=== PATIENT | male | born 1995 | race Caucasian/White ===

== ENCOUNTER 2016-06-25 20:13 | Emergency (ER) | payer SELFPAY ==
[2016-06-25] MEDS ORDERED: Acetaminophen TAB* 325 MG PO ONE (20:19)
[2016-06-25] MEDS ORDERED: NS 0.9% 1000 ML* 1,000 ML IV ONE (21:37)
--- NOTE | 2016-06-25 21:47 | ED ---
Influenza-Like Illness - HPI Summary HPI Summary: Pt came to ED with a CC of fever, mid back pain, and body aches, dizziness and GUIDRY since early this morning. Patient was able to go to work this afternoon, but states pain and chills and sweats have been increasing in severity. Denies other health problems. Denies known sick contacts or travel. Denies N/V/C/D. - History of Current Complaint Chief Complaint: EDFever Time Seen by Provider: 06/25/16 21:33 Hx Obtained From: Patient Onset/Duration: Sudden Onset Severity: Moderate Associated Signs & Symptoms: Fever, T Max - 103, F/C, Myalgia, Headache Related Hx: Possible Flu/Infectious Exposure - Risk Factors Influenza Risk Factors: Negative - Allergy/Home Medications Allergies/Adverse Reactions: Allergies Allergy/AdvReac Type Severity Reaction Status Date / Time Amoxicillin Allergy Unknown Hives Verified 06/25/16 20:15 PMH/Surg Hx/FS Hx/Imm Hx Previously Healthy: Yes Respiratory History: Reports: Hx Asthma - Immunization History Hx Pertussis Vaccination: No Immunizations Up to Date: No Infectious Disease History: No Infectious Disease History: Denies: Traveled Outside the [place] in Last 30 Days - Family History Known Family History: Positive: None - Social History Occupation: Employed Full-time Lives: With Family Alcohol Use: None Hx Substance Use: No Substance Use Type: Reports: None Hx Tobacco Use: No Smoking Status (MU): Never Smoked Tobacco Do You Chew or Dip Tobacco: No Have You Chewed or Dipped Tobacco in the LAST YEAR: No Review of Systems Positive: Fever, Chills, Fatigue, Skin Diaphoresis Eyes: Negative ENT: Negative Cardiovascular: Negative Respiratory: Negative Gastrointestinal: Negative Positive: see HPI Musculoskeletal: Negative Skin: Negative Neurological: Negative Psychological: Normal All Other Systems Reviewed And Are Negative: Yes Physical Exam Triage Information Reviewed: Yes Vital Signs On Initial Exam: Initial Vitals Temp Pulse Resp BP Pulse Ox 103.6 F 111 18 151/58 98 06/25/16 20:15 06/25/16 20:15 06/25/16 20:15 06/25/16 20:15 06/25/16 20:15 Vital Signs Reviewed: Yes Appearance: Positive: No Pain Distress, Well-Nourished, Ill-Appearing Skin: Positive: Warm, Diaphoretic Eyes: Positive: Normal, EOMI ENT: Positive: TMs normal Neck: Positive: Supple, Nontender Respiratory/Lung Sounds: Positive: Clear to Auscultation, Breath Sounds Present Cardiovascular: Positive: Normal, RRR, Pulses are Symmetrical in both Upper and Lower Extremities Abdomen Description: Positive: Nontender Bowel Sounds: Positive: Present Musculoskeletal: Positive: Normal, Strength/ROM Intact Neurological: Positive: Normal, Sensory/Motor Intact, Speech Normal Psychiatric: Positive: Normal AVPU Assessment: Alert - Muna Coma Scale Best Eye Response: 4 - Spontaneous Best Motor Response: 6 - Obeys Commands Best Verbal Response: 5 - Oriented Coma Scale Total: 15 Diagnostics - Vital Signs Vital Signs Temp Pulse Resp BP Pulse Ox 06/25/16 20:15 103.6 F 111 18 151/58 98 - Laboratory Result Diagrams: 06/25/16 21:45 06/25/16 21:45 Lab Statement: Any lab studies that have been ordered have been reviewed, and results considered in the medical decision making process. Flu Symptom Course/Dx - Course Course Of Treatment: Flu swab. Fluids, tylenol given. Patient feeling better. - Diagnoses Differential Diagnosis/HQI/PQRI: Positive: Influenza, Pneumonia, Upper Respiratory Infection Provider Diagnoses: Viral illness Discharge - Discharge Plan Condition: Stable Disposition: HOME Patient Education Materials: Viral Syndrome (ED) Forms: *Work Release Referrals: No Primary Care Phys,NOPCP [Primary Care Provider] - Additional Instructions: Drink plenty of fluids. A humidifier in the home can help with congestion during the colder months. Take any medication prescribed to you as directed. If you have any questions regarding your medications, you may call the office or your pharmacist. If your symptoms fail to improve or worsen, please call your primary care provider, come back to urgent care or the emergency room. Tylenol 650mg three times daily as needed for pain and fever.
[2016-06-25 22:03] LABS: Hematocrit 45 % (42-52); Hemoglobin 15.5 g/dl (14.0-18.0); Mean Corpuscular HGB Conc 35 g/dl (31-36); Mean Corpuscular Hemoglobin 30 pg (27-31); Mean Corpuscular Volume 86 fL (80-94); Mean Platelet Volume 11 um3 (7.4-10.4); Red Blood Count 5.24 10^6/ul (4.0-5.4); Red Cell Distribution Width 13 % (10.5-15); White Blood Count 8.1 10^3/ul (3.5-10.8)
[2016-06-25 22:19] LABS: Albumin 4.8 g/dL (3.2-5.2); BUN/Creatinine Ratio 12.5 (8-20); C Reactive Protein 34.85 mg/L (< 5.00); Calcium 9.8 mg/dL (8.6-10.3); EGFR African American 65.4 (>60); EGFR Non-African American 50.9 (>60); Globulin 3.3 g/dL (2-4); Total Bilirubin 0.6 mg/dL (0.2-1.0); Total Protein 8.1 g/dL (6.4-8.9)
[2016-06-25 22:24] LABS: Potassium 3.5 mmol/L (3.5-5.0)
[2016-06-26 00:03] VITALS: BP 135/67
== END 2016-06-26 00:02 | disposition home or self-care (01) ==
LOC: ED 20:13
DX: M54.9 Dorsalgia, unspecified (principal); R53.83 Other fatigue; R61 Generalized hyperhidrosis; B34.9 Viral infection, unspecified
CPT/HCPCS: 36415; 80053; 85025; 86140; 87502; 99283; A9270-GY

== ENCOUNTER 2017-02-08 17:43 | Emergency (ER) | payer BC ==
[2017-02-08 18:04] VITALS: BP 115/66
--- NOTE | 2017-02-13 11:27 | UC ---
Abdominal Pain Male HPI - HPI Summary HPI Summary: 21 year old male presents with RLQ pain after doing abdominal exercises. - History of Current Complaint Chief Complaint: UCAbdominalPain Stated Complaint: LOWED ABD PAIN Time Seen by Provider: 02/08/17 18:06 Severity Initially: Severe Severity Currently: Severe Pain Intensity: 5 Pain Scale Used: 0-10 Numeric - 8 - Allergies/Home Medications Allergies/Adverse Reactions: Allergies Allergy/AdvReac Type Severity Reaction Status Date / Time Amoxicillin Allergy Unknown Hives Verified 06/25/16 20:15 PMH/Surg Hx/FS Hx/Imm Hx Previously Healthy: Yes - Surgical History Surgical History: None - Family History Known Family History: Positive: None - Social History Alcohol Use: None Substance Use Type: None Smoking Status (MU): Never Smoked Tobacco - Immunization History Most Recent Influenza Vaccination: no Review of Systems Constitutional: Negative Skin: Negative Eyes: Negative ENT: Negative Respiratory: Negative Cardiovascular: Negative Gastrointestinal: Abdominal Pain - rlq pain Genitourinary: Negative Motor: Negative Neurovascular: Negative Musculoskeletal: Negative Neurological: Negative Psychological: Negative All Other Systems Reviewed And Are Negative: Yes Physical Exam Triage Information Reviewed: Yes Vital Signs: Initial Vital Signs Temp 36.7 C 02/08/17 18:00 Pulse 77 02/08/17 18:00 Resp 16 02/08/17 18:00 BP 115/66 02/08/17 18:00 Pulse Ox 100 02/08/17 18:00 Vital Signs Reviewed: Yes Eye Exam: Normal ENT Exam: Normal Dental Exam: Normal Neck exam: Normal Neck: Positive: 1 Respiratory Exam: Normal Cardiovascular Exam: Normal Abdomen Description: Positive: Other: - rlq pain Musculoskeletal Exam: Normal Neurological Exam: Normal Psychological Exam: Normal Skin Exam: Normal Abd Pain Male Course/Dx - Differential Dx/Clinical Impression Provider Diagnoses: rlq pain. abdominal strain vs tear Discharge - Discharge Plan Condition: Good Disposition: OTHER Discharge Disposition Comment: patient suggested to go to er Patient Education Materials: Abdominal Pain (ED) Referrals: No Primary Care Phys,NOPCP [Primary Care Provider] - Additional Instructions: please go to er for rlq pain and possible abdominal muscle tear.
== END 2017-02-08 18:45 ==
LOC: UCEAST 17:43
DX: R10.31 Right lower quadrant pain (principal); Z88.1 Allergy status to other antibiotic agents
CPT/HCPCS: 81003; 99211; G0463

== ENCOUNTER 2018-08-05 11:10 | Emergency (ER) | payer SELFPAY ==
[2018-08-05 11:37] VITALS: BP 111/61
--- NOTE | 2018-08-05 14:16 | UC ---
Palpitation/Dysrhythmia HP - HPI Summary HPI Summary: This is a healthy 23-year-old male walks into the urgent care center complaining of "his heart beating out of his chest." The patient states that he had this condition approximately one year ago but it resolved a couple of hours. Present episode of palpitations began approximately 15 hours ago. He has not fainted and does not feel short of breath but he did feel uncomfortable driving here. - History of Current Complaint Chief Complaint: UCCardiac Stated Complaint: HEART BEATING FAST Time Seen by Provider: 08/05/18 11:34 Pain Intensity: 0 Pain Scale Used: 0-10 Numeric - Allergy/Home Medications Allergies/Adverse Reactions: Allergies Allergy/AdvReac Type Severity Reaction Status Date / Time Penicillins Allergy Hives Verified 08/05/18 11:38 PMH/Surg Hx/FS Hx/Imm Hx - Additional Past Medical History Additional PMH: PMH: approximately one year ago, similar episode of palpitations that resolved in 2-3 hours. Family hx: father with CVD. 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 Previously Healthy: Yes - Surgical History Surgical History: None - Family History Known Family History: Positive: None - Social History Alcohol Use: Weekly Substance Use Type: None Smoking Status (MU): Never Smoked Tobacco - Immunization History Most Recent Influenza Vaccination: no Review of Systems All Other Systems Reviewed And Are Negative: Yes Constitutional: Positive: Negative Eyes: Positive: Negative ENT: Positive: Negative Respiratory: Positive: Negative. Negative: Shortness Of Breath Cardiovascular: Positive: Palpitations Gastrointestinal: Positive: Negative Genitourinary: Positive: Negative Is Patient Immunocompromised?: No Physical Exam Triage Information Reviewed: Yes Vital Signs: Initial Vital Signs Temp 100.0 F 08/05/18 11:25 Pulse 155 08/05/18 11:25 Resp 18 08/05/18 11:25 BP 111/61 08/05/18 11:25 Pulse Ox 100 08/05/18 11:25 Vital Signs Reviewed: Yes Eye Exam: Normal ENT Exam: Normal Dental Exam: Normal Neck exam: Normal Neck: Positive: 1 Respiratory Exam: Normal Respiratory: Positive: Chest non-tender, Lungs clear Cardiovascular: Positive: RRR, Pulses Normal, Tachycardia. Negative: Distal Pulses Weak, Delayed Capillary Refill Abdominal Exam: Normal Abdomen Description: Positive: Nontender, No Organomegaly Musculoskeletal Exam: Normal Neurological Exam: Normal Psychological Exam: Normal Skin Exam: Normal Skin: Negative: Rashes Palpitations Course/Dx - Course Course Of Treatment: This is a healthy 23-year-old male walks into the urgent care center complaining of "his heart beating out of his chest." The patient states that he had this condition approximately one year ago but it resolved a couple of hours. Present episode of palpitations began approximately 15 hours ago. He has not fainted and does not feel short of breath but he did feel uncomfortable driving here. Physical examination shows a healthy male, who is physically active, in no apparent distress. He is conversant and does not complain of chest pain. EKG shows a rate of approximately 150, narrow complex. Procedure: Patient was asked to perform vagal maneuvers and after listening in the area of the right neck, external carotid massage was attempted. Neither of these maneuvers decrease the patient's pulse rate. The remainder of his physical examination was unremarkable. His past medical history and family history was also noncontributory to his present condition, with the exception that his family history is significant for his father having a heart attack in his 50s. An ambulance was called and the patient was transferred to [facility] for further evaluation and treatment. I diagnosis is PSVT. - Differential Dx/Diagnosis Differential Diagnosis/HQI/PQRI: Paroxymal SVT, Pulmonary Embolism Provider Diagnosis: PSVT (paroxysmal supraventricular tachycardia) Discharge - Sign-Out/Discharge Documenting (check all that apply): Patient Departure All imaging exams completed and their final reports reviewed: No Studies - Discharge Plan Condition: Stable Disposition: TRANS HIGHER LV OF CARE FAC Patient Education Materials: Supraventricular Tachycardia (ED) Referrals: No Primary Care Phys,NOPCP [Primary Care Provider] - Additional Instructions: TO ED BY AMBULANCE; VITAL SIGNS STABLE. LINE PLACED. - Billing Disposition and Condition Condition: STABLE Disposition: Trans Higher Lvl of Care Fac
== END 2018-08-05 11:47 | disposition short-term general hospital (02) ==
LOC: UCEAST 11:10
DX: I47.1 Supraventricular tachycardia (principal); Z82.49 Family history of ischemic heart disease and other diseases of the circulatory system; Z88.0 Allergy status to penicillin
CPT/HCPCS: 93005; 96360; 99203; G0463

== ENCOUNTER → 2018-08-05 12:08 | Emergency (ER) | payer SELFPAY ==
[~2018-08-05 12:08] MED LIST: Diltiazem IV VIAL* 125 MG in NS 0.9% 100 ML* 100 ML IVPB ONE; Diltiazem IV* 5 MG/ML 5 ML VIAL (for loading dose/IV Push) (25 MG) IV SLOW PU ONE; Flumazenil* 0.1 MG/ML 5 ML MDV ONE; Metoprolol Tartrate IV* 1 MG/ML 5 ML VIAL IV ONE; Metoprolol Tartrate IV* 1 MG/ML 5 ML VIAL ONE; Midazolam* 1 MG/ML 5 ML VIAL (5 MG) ONE; NS 0.9% 1000 ML** 1,000 ML IV ONE; Naloxone* 0.4 MG/ML 1 ML VIAL ONE; fentaNYL* 50 MCG/ML 2 ML VIAL (100 MCG VIAL) ONE; proPAFENone TAB* 150 MG PO ONE
--- NOTE | 2018-08-05 12:34 | ED ---
Palpitations / Dysrhythmia - HPI Summary HPI Summary: 23 year old M brought in by [facility] ambulance from [facility] to [facility] complains of rapid heart rate since last night after exercising. The patient rates the pain 0/10 in severity. Symptoms aggravated by nothing. Symptoms alleviated by nothing. Patient reports shortness of breath and dizziness. Patient denies fever, chills, erythema of eyes, sore throat, chest pain, cough, abdominal pain, nausea, vomiting, dysuria, hematuria, myalgia, edema, and rash. Patient arrives to ED from [facility] in SVT and heart rate in the 140- 160s per nurse's note. EMS did not give medications per nurse's note. Patient states that he took a pre work out yesterday afternoon at 13:00. He states that he takes pre work out every day after which he usually feels energetic. He worked out, came home, then noticed his heart was beating really fast. Patient reports FHx HI. - History of Current Complaint Chief Complaint: EDDysrhythmPalp Time Seen by Provider: 08/05/18 12:14 Hx Obtained From: Patient Onset/Duration: Lasting Days - last night, Still Present Timing: Constant Severity Currently: None Character: Fast Aggravating: Nothing Alleviating: Nothing - Allergy/Home Medications Allergies/Adverse Reactions: Allergies Allergy/AdvReac Type Severity Reaction Status Date / Time Penicillins Allergy Hives Verified 08/05/18 11:38 Home Medications: Home Medications Ibuprofen 400 mg PO DAILY PRN 08/05/18 [History Confirmed 08/05/18] PMH/Surg Hx/FS Hx/Imm Hx Previously Healthy: No Endocrine/Hematology History: Denies: Hx Diabetes, Hx Thyroid Disease Cardiovascular History: Denies: Hx Hypertension Respiratory History: Reports: Hx Asthma Denies: Hx Chronic Obstructive Pulmonary Disease (COPD) GI History: Denies: Hx Ulcer - Surgical History Surgery Procedure, Year, and Place: None reported Infectious Disease History: No Infectious Disease History: Denies: Hx Clostridium Difficile, Hx Hepatitis, Hx Human Immunodeficiency Virus (HIV), Hx of Known/Suspected MRSA, Hx Shingles, Hx Tuberculosis, Hx Known/ Suspected VRE, Hx Known/Suspected VRSA, History Other Infectious Disease, Traveled Outside the [place] in Last 30 Days - Family History Known Family History: Positive: Cardiac Disease - Father has had multiple MIs and stents - Social History Alcohol Use: Occasionally Hx Substance Use: No Substance Use Type: Reports: None Hx Tobacco Use: No Smoking Status (MU): Never Smoked Tobacco Review of Systems Negative: Fever, Chills Negative: Erythema Negative: Sore Throat Negative: Chest Pain Positive: Shortness Of Breath. Negative: Cough Positive: Other - Rapid heart rate. Negative: Abdominal Pain, Vomiting, Nausea Negative: dysuria, hematuria Negative: Myalgia, Edema Negative: Rash Neurological: Other - Dizziness All Other Systems Reviewed And Are Negative: Yes Physical Exam - Summary Physical Exam Summary: Constitutional: Well-developed, Well-nourished, Alert. (-) Distressed Skin: Warm, Dry HENT: Normocephalic; Atraumatic Eyes: Conjunctiva normal Neck: Musculoskeletal ROM normal neck. (-) JVD, (-) Stridor, (-) Tracheal deviation Cardio: Rhythm regular, rate rapid, Heart sounds normal; Intact distal pulses; The pedal pulses are 2+ and symmetric. Radial pulses are 2+ and symmetric. (-) Murmur Pulmonary/Chest wall: Effort normal. (-) Respiratory distress, (-) Wheezes, (-) Rales Abd: Soft, (-) tenderness, (-) Distension, (-) Guarding, (-) Rebound Musculoskeletal: (-) Edema Lymph: (-) Cervical adenopathy Neuro: Alert, Oriented x3 Psych: Mood and affect Normal Triage Information Reviewed: Yes Vital Signs On Initial Exam: Initial Vitals Temp Pulse Resp BP Pulse Ox 99.6 F 151 14 152/126 99 08/05/18 12:12 08/05/18 12:12 08/05/18 12:12 08/05/18 12:12 08/05/18 12:12 Vital Signs Reviewed: Yes Diagnostics - Vital Signs Vital Signs Temp Pulse Resp BP Pulse Ox 08/05/18 12:12 99.6 F 151 14 152/126 99 - Laboratory Result Diagrams: 08/05/18 12:30 08/05/18 12:30 Lab Statement: Any lab studies that have been ordered have been reviewed, and results considered in the medical decision making process. - EKG 1213 Summary of EKG Findings: Non STEMI 1308 Cardiac Rate: NL - 90 BPM EKG Rhythm: Atrial Fibrillation Summary of EKG Findings: Non STEMI Re-Evaluation - Re-Evaluation First Eval Re-Evaluation Time: 12:45 Change: Unchanged Comment: I was present in the room when adenosine was administered. The medication did not abort the tachycardia. The patient appeared to have underlying flutter waves. Second Eval Re-Evaluation Time: 13:34 Comment: I explained plan to him and he is agreeable Course/Dx - Course Course Of Treatment: 23 year old M brought in by [facility] ambulance from [facility] to [facility] complains of rapid heart rate since last night after exercising. Patient arrives to ED from [facility] in SVT and heart rate in the 140-160s per nurse's note. In ED course, patient was given adenosine. Dr. Mo, cardiology, will come see the patient. Dr. Mo recommended attempted cardioversion with Cardizem and also Lopressor, these fail. Patient did receive direct-current cardioversion by Dr. Mo. See his procedure note. The cardioversion was successful. Dr. Mo will follow-up with him as an outpatient. I suspect that the renal insufficiency is related to dehydration. Outpatient follow-up. - Diagnoses Provider Diagnoses: Atrial flutter with rapid ventricular response, Renal insufficiency - Physician Notifications Discussed Care Of Patient With: Jonathon Mo Time Discussed With Above Provider: 13:24 Instructed by Provider To: Other - Dr. Mo, cardiology, recommended administering 300 mg of propafenone. He also recommended bedside echocardiogram. He will come see the patient. We discussed the possibility of cardioversion. - Critical Care Time Critical Care Time: 30-74 min - 45 min Discharge - Sign-Out/Discharge Documenting (check all that apply): Patient Departure Patient Received Moderate/Deep Sedation with Procedure: No - Discharge Plan Condition: Good Disposition: HOME Referrals: Jonathon Mo MD [Medical Doctor] - 1 Week [facility] [Outside] - 2 Days (This will save up with a primary care physician. They can usually receives same day or next day.) Additional Instructions: Eat one to 2 avocados daily for potassium replacement. Avoid taking any exercise supplements, they may have contributed to today's heart rhythm issue. - Billing Disposition and Condition Condition: GOOD Disposition: Home - Attestation Statements Document Initiated by Scribe: Yes Documenting Scribe: Anyi Gutiérrez Provider For Whom Scribe is Documenting (Include Credential): Heber West MD Scribe Attestation: I, Anyi Gutiérrez, scribed for Heber West MD on 08/05/18 at 1755. Scribe Documentation Reviewed: Yes Provider Attestation: The documentation as recorded by the scribe, Anyi Gutiérrez accurately reflects the service I personally performed and the decisions made by me, Heber Wset MD Status of Scribe Document: Viewed
[2018-08-05 12:38] LABS: ABS Basophils 0.1 10^3/ul (0-0.2); ABS Eosinophils 0 10^3/ul (0-0.6); ABS Lymphocytes 1.6 10^3/ul (1.0-4.8); ABS Monocytes 0.4 10^3/ul (0-0.8); ABS Nucleated RBC 0 10^3/ul; Eosinophil % 0.6 %; Hematocrit 45 % (36-46); Hemoglobin 15.4 g/dL (14.0-18.0); Lymphocyte % 22.3 %; Mean Corpuscular HGB Conc 35 g/dL (31-36); Mean Corpuscular Hemoglobin 29 pg (27-31); Mean Corpuscular Volume 85 fL (80-94); Mean Platelet Volume 9.4 fL (7.4-10.4); Nucleated Red Blood Cells % 0; Platelet Count 282 10^3/uL (150-450); Red Blood Count 5.24 10^6 /uL (4.18-5.48); Red Cell Distribution Width 14 % (10.5-15); White Blood Count 7.2 10^3/uL (3.5-10.8)
[2018-08-05] MEDS: Adenosine* 3 MG/ML VIAL IV PUSH ONE ×2 (12:40→12:43)
[2018-08-05 12:55] LABS: Albumin 4.4 g/dL (3.2-5.2); Albumin/Globulin Ratio 1.5 (1-3); BUN/Creatinine Ratio 16.3 (8-20); Calcium 9.3 mg/dL (8.6-10.3); EGFR African American 82.1 (>60); EGFR Non-African American 67.9 (>60); Globulin 2.9 g/dL (2-4); Potassium 3.8 mmol/L (3.5-5.0); Total Bilirubin 0.7 mg/dL (0.2-1.0); Total Protein 7.3 g/dL (6.4-8.9)
[2018-08-05 12:57] LABS: Troponin I 0.02 ng/mL (<0.04)
[2018-08-05 13:35] LABS: TSH (Thyroid Stimulating Horm) 1.77 mcIU/mL (0.34-5.60)
[2018-08-05 13:37] LABS: Free T4 1.14 ng/dL (0.61-1.12)
[2018-08-05 15:23] LABS: Barbiturates Urine Screen None Detected (None Detect); Benzodiazepine Urine Screen None Detected (None Detect); Urine Cannabinoids Screen None Detected (None Detect)
--- NOTE | 2018-08-05 15:35 | ECHO ---
Patient: OZ FINNEY [facility] Rec#: [id number] : 1995 Date: 08/05/2018 Age: 23y Height: 180 cm / 70.9 in Weight: 87 kg / 191.7 lbs Sex: M BSA: 2.07 Room#: [facility] Admit Date#: 08/05/2018 Type: Inpatient Referring: ED Reading: Jonathon Mo MD Inspector Exhaust Emissions: [place] [facility] Transthoracic Echocardiogram Indication: Atrial Flutter BP: 124/72 HR: 125 Rhythm: A-Flutter Findings History: SVT, asthma. Technical Comments: The study quality is good. Completed at 1500. Left Ventricle: The left ventricular chamber size is normal. There is no left ventricular hypertrophy. Global left ventricular wall motion and contractility are within normal limits. There is normal left ventricular systolic function. The estimated ejection fraction is 55-60%. The assessment of diastolic function is non-diagnostic. Left Atrium: The left atrial chamber size is normal. Right Ventricle: Moderator Band present. The right ventricle is mildly dilated. The right ventricular global systolic function is normal. Right Atrium: The right atrial cavity size is normal. Aortic Valve: The aortic valve is trileaflet. There is no evidence of aortic valve thickening. There is a trace of aortic regurgitation. There is no evidence of aortic stenosis. Mitral Valve: The mitral valve leaflets are mildly thickened. There is mild mitral valve prolapse. There is a trace of mitral regurgitation. There is no evidence of mitral stenosis. Tricuspid Valve: The tricuspid valve leaflets are normal. There is a physiologic tricuspid regurgitation. Unable to estimate the right ventricular systolic pressure. There is no tricuspid stenosis. Pulmonic Valve: The pulmonic valve appears normal. There is a trace pulmonic regurgitation. There is no pulmonic stenosis. Pericardium: There is no significant pericardial effusion. Aorta: There is no dilatation of the ascending aorta. There is no dilatation of the aortic arch. The aortic root is normal in size. Pulmonary Artery: The main pulmonary artery appears normal. Venous: The inferior vena cava appears normal in size. There is a greater than 50% respiratory change in the inferior vena cava dimension. Summary: There was not any prior study for comparison. Conclusions The estimated ejection fraction is 55-60%. The right ventricle is mildly dilated. There is a trace of aortic regurgitation. There is mild mitral valve prolapse. There is a trace of mitral regurgitation. There is a physiologic tricuspid regurgitation. Measurements Name Value Normal Range RVIDd (AP) 2D 2 cm (0.9 - 2.6) RVDdMajor (2D) 4.6 cm (2.2 - 4.4) RAd ISD 4CH 4.6 cm (3.4 - 4.9) RA (A4C)W 3.9 cm (2.9 - 4.6) IVSd (2D) 0.8 cm (0.6 - 1) LVPWd (2D) 1 cm (0.6 - 1) LVIDd (2D) 5.1 cm (3.6 - 5.4) LVIDs (2D) 3.2 cm - LV FS (2D) 36 % (25 - 45) Aortic Annulus 2.3 cm (1.4 - 2.6) Ao root diameter (2D) 2.9 cm (2.1 - 3.5) Ascending Ao 2.9 cm (2.1 - 3.4) Aortic arch 1.8 cm (1.8 - 3.4) LA dimension (AP) 2D 3 cm (2.3 - 3.8) LAd ISD 4CH 4.1 cm (2.9 - 5.3) LA ISD 4CH W 4.3 cm (2.5 - 4.5) Name Value Normal Range LA ESV BP (A/L) index 31 ml/m2 - Name Value Normal Range MV E-wave Vmax 0.6 m/sec - MV deceleration time 168 msec - LV septal e' Vmax 0.16 m/sec - LV lateral e' Vmax 0.19 m/sec - LV E:e' septal ratio 3.8 ratio - LV E:e' lateral ratio 3.2 ratio - Name Value Normal Range AV Vmax 1.1 m/sec - AV VTI 19 cm - AV peak gradient 5 mmHg - AV mean gradient 3 mmHg - LVOT Vmax 1 m/sec - LVOT VTI 16 cm - LVOT peak gradient 4 mmHg - LVOT mean gradient 2 mmHg - AYO Vmax 1.1 m/sec - Name Value Normal Range IVC diameter 1.9 cm - Name Value Normal Range PV Vmax 1.3 m/sec - PV peak gradient 7 mmHg -
[2018-08-05 17:39] LABS: Magnesium 2.2 mg/dL (1.9-2.7)
[2018-08-05 18:20] VITALS: BP 109/58
--- NOTE | 2018-08-05 18:47 | CONS ---
CARDIOLOGY CONSULTATION NOTE: DATE OF CONSULT: 08/05/18 - EMERGENCY DEPT. Dr. Jenna hernandez MD. REASON FOR CONSULT: AFib. 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 He said he worked up pretty vigorously and regularly. He said yesterday he worked up from 12 to 2, right after he took a cup of a bodybuilding supplement that had the equivalent of a cup of caffeine according to the patient. About 8 p.m., he was sitting and noticed his heart was fast and irregular. He thought it might go away, so he rested overnight. Next day, he went to work and noticed that while he was doing CPR, he was a little lightheaded. 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 He said that he has been aware of his heart beating since 8 p.m. last night. He said this happened once about a year ago and resolved after about 8 hours. He said he thinks in retrospect he may have had some brief episodes of fluttering since then. He denies any recreational drug use or energy drink use. He does use bodybuilding supplement that contains caffeine. He has alcohol about 2 drinks once every 2 weeks. He denies tobacco use. PAST MEDICAL HISTORY: Includes asthma, the palpitations as described above. He denies hypertension, diabetes, hyperlipidemia. PAST SURGICAL HISTORY: He denies. ALLERGIES: PENICILLIN. FAMILY HISTORY: Includes the father, had stents placed at about age 54, he is now 56, coronary stents. His mother is 65, alive and well. He has 8 siblings, one brother has rhythm problem of unclear etiology and takes medicine for it. SOCIAL HISTORY: He is single, works in [employer]. He has no children. He has alcohol about 2 drinks once every 2 weeks. He denies tobacco use. 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 REVIEW OF SYSTEMS: Review of systems x10 was negative except as above. The patient does fast for 16 hours a day and drinks 30 glasses of water a day. PHYSICAL EXAM: He is a well-developed, well-nourished gentleman, muscular, in no apparent distress. Pulse of 117, blood pressure 139/89. No significant JVD. Carotids 2+, without bruits. No cervical adenopathy or thyromegaly. Extraocular muscles are intact. Sclerae anicteric. Cardiac exam: S1, S2, tachy and irregular. No clear murmurs, gallops, or rubs. Chest was clear. No CVAT. Abdomen: Bowel sounds present. Nontender. Femoral pulses intact without bruits. No hepatosplenomegaly. Distal pulses intact. No edema. Motor strength 5/5 bilaterally. Deep tendon reflexes 2/4. Alert and oriented x3. DIAGNOSTIC STUDIES/LAB DATA: EKG revealed A-flutter, AFib with a rapid ventricular response. Electrolytes are pending at this point. Echo is pending at this point. IMPRESSION: My impression is that Mr. Mae appears to have an episode of atrial fibrillation after bodybuilding, fasting, and using caffeine. I did explain to him the potential for recurrence with electrolyte abnormalities, caffeine use. I also explained the need to exclude structural heart disease. We discussed the risk of stroke which I estimate it would be less than 1% given his young age and lack of history of comorbidities. For the time being, I recommend the followin. We will attempt pharmacologic cardioversion with propafenone 300 mg given recently. 2. I would suggest rate control with IV diltiazem 20 mg and then 5 mg drip. If he fails to convert, we will consider a cardioversion. I discussed the procedure with the patient. 3. Await his electrolytes and try to make sure his potassium and magnesium are within normal limits. 4. Further recommendation will depend on his clinical course. If he continues to have episodes of atrial flutter/fibrillation, he might benefit from being on a beta-lorena care home. 5. we also discussed the possibility of EP consultation for ablation if symptoms are recurrent and adversely affecting his lifestyle. [id number]/[facility] #: [id number] [place]
--- NOTE | 2018-08-05 21:30 | PRO ---
CC: Dr. West * DATE OF PROCEDURE: 08/05/18 - EMERGENCY DEPT INDICATIONS: This is a 23-year-old gentleman who developed palpitations last night, came to the ER, was found to be in atrial flutter. He received IV diltiazem and 300 mg of propafenone and 5 mg of IV Lopressor. He failed to convert. His potassium was 3.8. It was decided to proceed with cardioversion. Informed consent was obtained. The patient was in the fasting state for more than 6 hours. He received 7 mg of Versed and 100 mcg of fentanyl. A single biphasic shock of 120 joules was applied with successful conversion to sinus rhythm. IMPRESSION: Atrial flutter with successful conversion to sinus rhythm. I discussed with the patient before his diagnosis and prognosis and with his permission discussed the results with his brother, Jean. He is to avoid caffeine and electrolyte depletion and dehydration. We will ask him to increase his dietary intake of potassium and consider sending him home on 20 mEq of potassium as discussed with Dr. West. He is to have a magnesium checked which is pending. If he has recurrences, we will have to consider whether to use a standing medication or p.r.n. antiarrhythmic or referral for ablation depending on the frequency and severity of these events. 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 [id number]/[facility] #: [id number] MTDD
== END | disposition home or self-care (01) ==
LOC: ED 12:08
DX: I48.92 Unspecified atrial flutter (principal); N28.9 Disorder of kidney and ureter, unspecified; R94.31 Abnormal electrocardiogram [ECG] [EKG]; J45.909 Unspecified asthma, uncomplicated; Z88.0 Allergy status to penicillin
CPT/HCPCS: 36415; 80053; 80307; 83605; 83735; 84439; 84443; 84484; 85025; 93005; 93306; 96361; 96365; 96366; 96375; 96376; 99285; 99291; A9270-GY; J0153; J2250; J2310; J3010; J3490

== ENCOUNTER 2018-10-01 16:36 | Emergency (ER) | payer BC ==
[2018-10-01] MEDS ORDERED: Metoprolol Tartrate IV* 1 MG/ML 5 ML VIAL IV ONE (16:51)
--- NOTE | 2018-10-01 17:01 | ED ---
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 The pt stated that he was involved in a restraint at work when his chest started feeling weird and was pounding. Pt stated that he had pain but that eventually stopped over time and he denies any breathing issues. Pt states that he was told he had a high heart rate and left work to come to the ED. Stated that he feel better and does not want the same treatment as last time. Pt reported that he did like the IV medication he was given last visit and requested a different one. Symptoms are alleviated and aggravated by nothing. - History of Current Complaint Chief Complaint: EDDysrhythmPalp Time Seen by Provider: 10/01/18 16:46 Hx Obtained From: Patient Onset/Duration: Sudden Onset, Lasting Hours - 1, Still Present Timing: Constant Severity Initially: Moderate Severity Currently: Mild Character: Fast, Pounding Aggravating: Nothing Alleviating: Nothing Associated Signs & Symptoms: Chest Pain - Present when the onset occurred, denies chest pain currently, Shortness of Breath - Negative - Allergy/Home Medications Allergies/Adverse Reactions: Allergies Allergy/AdvReac Type Severity Reaction Status Date / Time Penicillins Allergy Hives Verified 10/01/18 17:29 Home Medications: Home Medications Melatonin 5 mg PO BEDTIME 10/01/18 [History Confirmed 10/01/18] PMH/Surg Hx/FS Hx/Imm Hx Previously Healthy: No Endocrine/Hematology History: Denies: Hx Diabetes, Hx Thyroid Disease Cardiovascular History: Denies: Hx Hypertension Respiratory History: Reports: Hx Asthma Denies: Hx Chronic Obstructive Pulmonary Disease (COPD) GI History: Denies: Hx Ulcer - Surgical History Surgery Procedure, Year, and Place: None reported Infectious Disease History: No Infectious Disease History: Denies: Hx Clostridium Difficile, Hx Hepatitis, Hx Human Immunodeficiency Virus (HIV), Hx of Known/Suspected MRSA, Hx Shingles, Hx Tuberculosis, Hx Known/ Suspected VRE, Hx Known/Suspected VRSA, History Other Infectious Disease, Traveled Outside the [place] in Last 30 Days - Family History Known Family History: Positive: Cardiac Disease - Father has had multiple MIs and stents - Social History Alcohol Use: Occasionally Hx Substance Use: No Substance Use Type: Reports: None Hx Tobacco Use: No Smoking Status (MU): Never Smoked Tobacco Review of Systems Positive: Palpitations - described as pounding, Chest Pain - Present on onset, denies CP currently Negative: Shortness Of Breath All Other Systems Reviewed And Are Negative: Yes Physical Exam - Summary Physical Exam Summary: Appearance: The patient is well-nourished in no acute distress and in no acute pain. Skin: The skin is warm and dry and skin color reflects adequate perfusion. HEENT: The head is normocephalic and atraumatic. The pupils are equal and reactive. The conjunctivae are clear and without drainage. Nares are patent and without drainage. Mouth reveals moist mucous membranes and the throat is without erythema and exudate. The external ears are intact. The ear canals are patent and without drainage. The tympanic membranes are intact. Neck: The neck is supple with full range of motion and non-tender. There are no carotid bruits. There is no neck vein distension. Respiratory: Chest is non-tender. Lungs are clear to auscultation and breath sounds are symmetrical and equal. Cardiovascular: Heart is tachycardic and regular rhythm. There is no murmur or rub auscultated. There is no peripheral edema and pulses are symmetrical and equal. Abdomen: The abdomen is soft and non-tender. There are normal bowel sounds heard in all four quadrants and there is no organomegaly palpated. Musculoskeletal: There is no back tenderness noted. Extremities are non-tender with full range of motion. There is good capillary refill. There is no peripheral edema or calf tenderness elicited. Neurological: Patient is alert and oriented to person, place and time. The patient has symmetrical motor strength in all four extremities. Cranial nerves are grossly intact. Deep tendon reflexes are symmetrical and equal in all four extremities. Psychiatric: The patient has an appropriate affect and does not exhibit any anxiety or depression Triage Information Reviewed: Yes Vital Signs On Initial Exam: Initial Vitals Temp Pulse Resp BP Pulse Ox 98.8 F 150 18 159/118 98 10/01/18 16:38 10/01/18 16:38 10/01/18 16:38 10/01/18 16:38 10/01/18 16:38 Vital Signs Reviewed: Yes Diagnostics - Vital Signs Vital Signs Temp Pulse Resp BP Pulse Ox 10/01/18 16:38 98.8 F 150 18 159/118 98 - Laboratory Lab Statement: Any lab studies that have been ordered have been reviewed, and results considered in the medical decision making process. - EKG 1745 Cardiac Rate: Tachycardia - 150 EKG Rhythm: SVT Summary of EKG Findings: Tachycardic SVT with a rate of 150 BPM. Re-Evaluation - Re-Evaluation First Eval Re-Evaluation Time: 17:18 Change: Unchanged Comment: IV medications are being used efficently. Second Eval Re-Evaluation Time: 17:26 Change: Unchanged Comment: Pt's heart rate is rising again back to the value he had upon arrival. Third Eval Re-Evaluation Time: 18:36 Change: Unchanged Comment: Pt reported that cardizem does not affect him. Pt still refuses adenosine. Cardizem will be used as planned. Fourth Eval Re-Evaluation Time: 18:47 Change: Unchanged Comment: Pt was asked if he wants to be cardioverted. Pt declined. Course/Dx - Course Course Of Treatment: Mr. Mae presented tachycardic at 150 and quite regular. I saw him in the sub-waiting room and at that time he told me he was twice given a medication that made him feel awful very transiently for the same thing. My assumption was that this was adenosine. He looked like he was in SVT and I gave him 5 of Lopressor IV. In reviewing his chart from 2 months ago I noted that he was in atrial fibrillation at that time rather than SVT and his A. fib was refractory to diltiazem. At that time he had been given propafenone and cardioverted. The Lopressor did give him a few pauses, enough to see that he was in a flutter. Unfortunately it also dropped his pressure into the 80s. I contacted Dr. Mcduffie to see if we can get him cardioverted however the patient refused to be cardioverted. Therefore I started diltiazem and at this point we are waiting to see if the diltiazem works. The patient had some chest pain initially when this started and reports that his rate was initially about 200. He came in asymptomatic except that he could feel his heart racing and remained so. - Diagnoses Provider Diagnoses: Atrial flutter with rapid ventricular response - Physician Notifications Discussed Care Of Patient With: James Mcduffie Time Discussed With Above Provider: 18:45 Instructed by Provider To: Other - Discussed pt's case with Dr. Mcduffie, Pesticide Control Inspector, about how to proceed with care. Dr. Mcduffie is willing to preform a cardioversion. - Critical Care Time Critical Care Time: 30-74 min Discharge - Sign-Out/Discharge Documenting (check all that apply): Sign-Out Patient Signing out patient TO: Mahad Bernard Receiving patient FROM: Palomo Mace Patient Received Moderate/Deep Sedation with Procedure: No - Discharge Plan Condition: Improved Disposition: HOME Prescriptions: Metoprolol Tartrate TAB* [Lopressor TAB*] 12.5 mg PO BID #30 tab Patient Education Materials: A-fib (Atrial Fibrillation) (ED), Moderate Sedation (ED) Forms: *Work Release Referrals: [facility] [Outside] [facility] [place] [facility] [Outside] James Mcduffie MD [Medical Doctor] - Additional Instructions: Avoid cough and cold medicines, energy drinks or caffeine. Avoid alcohol. Get plenty sleep. Return with palpitations, chest pain, difficulty breathing, worse or other concerns. Call the rafter cutting machine operator on Thursday to schedule prompt follow-up. - Billing Disposition and Condition Condition: IMPROVED Disposition: Home - Attestation Statements Document Initiated by Scribe: Yes Documenting Scribe: Dimas Todd Provider For Whom Scribe is Documenting (Include Credential): Palomo Mace MD Scribe Attestation: IDimas, scribed for Palomo Mace MD on 10/02/18 at 0753. Scribe Documentation Reviewed: Yes Provider Attestation: The documentation as recorded by the Dimas valencia accurately reflects the service I personally performed and the decisions made by me, Palomo Mace MD Status of Scribe Document: Viewed
[2018-10-01] MEDS ORDERED: Diltiazem DRIP* 100 MG/100 ML ADDV.BAG IVPB ONE (17:47)
[2018-10-01] MEDS ORDERED: Diltiazem IV VIAL* 125 MG in NS 0.9% 100 ML* 100 ML IVPB SCH (18:00)
[2018-10-01] MEDS ORDERED: Diltiazem IV VIAL* 125 MG in NS 0.9% 100 ML* 100 ML IVPB ONE (18:00)
[2018-10-01] MEDS ORDERED: NS 0.9% 100 ML* 100 ML ONE (18:27)
--- NOTE | 2018-10-01 19:14 | ED ---
Progress - Progress Note Progress Note: RECEIVING SIGN OUT FROM DR. MACE AT SHIFT CHANGE PENDING RE-EVAL. 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 - Results/Orders Results/Orders: EKG at 19:59 shows NSR 83 bpm with nml axis, nml interval and nml ST. Re-Evaluation - Re-Evaluation First Eval Re-Evaluation Time: 17:18 Change: Unchanged Comment: IV medications are being used efficently. Second Eval Re-Evaluation Time: 17:26 Comment: Pt's heart rate is rising again back to the value he had upon arrival. Third Eval Re-Evaluation Time: 18:36 Change: Unchanged Comment: Pt reported that cardizem does not affect him. Pt still refuses adenosine. Cardizem will be used as planned. Fourth Eval Re-Evaluation Time: 18:47 Change: Unchanged Comment: Pt was asked if he wants to be cardioverted. Pt declined. 1 Re-Evaluation Time: 19:28 Change: Unchanged Comment: Patient is agreeable to being cardioverted at this time. Patient's [id number] Score: 0. 000 Re-Evaluation Time: 00:00 Comment: . 00 Re-Evaluation Time: 00:00 Comment: . 0 Re-Evaluation Time: 00:00 Comment: . 0000 Comment: . NA 2 Comment: . [id number] Comment: . NA 1 Comment: . 1 - DOMI Re-Evaluation Time: 19:28 Change: Unchanged Comment: Patient is agreeable to being cardioverted at this time. Patient's [id number] Score: 0. 2 - DOMI Re-Evaluation Time: 19:39 Change: Unchanged Comment: Patient still tachy and irregular but is stable. 3 - DOMI Re-Evaluation Time: 19:58 Change: Unchanged Comment: Cardioverting patient: 150 mg Propofol with 100 J. 4 - DOMI Re-Evaluation Time: 20:19 Change: Improved Comment: Patient is in NSR after cardioversion. Course/Dx - Course Course Of Treatment: RECEIVING SIGN OUT FROM DR. MACE AT SHIFT CHANGE PENDING RE-EVAL. Nurses note reviewed. Patient's [id number] Score: 0. Procedure: Synchronized cardioversion under sedation. Indication: Rapid atrial fibrillation. Description: The patient was formally consented and a timeout was performed. He was to cardiopulmonary monitoring including end-tidal CO2. He is placed on nasal cannula oxygen. His ASA score was 1 and his Mallampati class is 1. He has been NPO >4hrs. patient was sedated with IV propofol initially at ~1 mg/kg or 100mg. this produced mild drowsiness but not enough to do the procedure so an additional 50 mg was given. Total of 150 mg was used. This produced adequate sedation for the procedure. Total sedation time was 1 minute. The patient successfully cardioverted to normal sinus rhythm with 100 J synchronized cardioversion with pads placed in the anterior posterior positions. The patient recovered uneventfully following cardioversion. ED course: The patient had not improved with diltiazem, Lopressor given by previous physician. He was in the arrhythmia less than 3 hours and was low risk for associated stroke. He consented to cardioversion which was performed without issue. He cardioverted successfully into normal sinus rhythm. I spoke to the electrician apprentice who agrees that the patient to be discharged on metoprolol. He will follow him up in the office. - Diagnoses Provider Diagnoses: Rapid atrial fibrillation - Provider Notifications Discussed Care Of Patient With: James Mcduffie - cardio Time Discussed With Above Provider: 20:21 Instructed by Provider To: Other - Updating that patient was cardioverted successfully. Agrees with low-dose Lopressor and have patient f/u in office. - Critical Care Time Critical Care Time: 30-74 min - CCT is EXCLUSIVE of separately billable procedures. Discharge - Sign-Out/Discharge Documenting (check all that apply): Patient Departure - D/C, Receiving Sign-Out Receiving patient FROM: Palomo Mace - pending re-eval Patient Received Moderate/Deep Sedation with Procedure: Yes - Discharge Plan Condition: Improved Disposition: HOME Prescriptions: Metoprolol Tartrate TAB* [Lopressor TAB*] 12.5 mg PO BID #30 tab Patient Education Materials: A-fib (Atrial Fibrillation) (ED), Moderate Sedation (ED) Forms: *Work Release Referrals: [facility] [Outside] [facility] [facility] [Outside] James Mcduffie MD [Medical Doctor] - Additional Instructions: Avoid cough and cold medicines, energy drinks or caffeine. Avoid alcohol. Get plenty sleep. Return with palpitations, chest pain, difficulty breathing, worse or other concerns. Call the electrician apprentice on Thursday to schedule prompt follow-up. - Billing Disposition and Condition Condition: IMPROVED Disposition: Home - Attestation Statements Document Initiated by Zoë: Yes Documenting Scribe: Orestes Whitten Provider For Whom Zoë is Documenting (Include Credential): Dr. Mahad Bernard MD Scribe Attestation: I, Orestes Whitten, scribed for Dr. Mahad Bernard MD on 10/01/18 at 2143. Scribe Documentation Reviewed: Yes Provider Attestation: The documentation as recorded by the Orestes valencia accurately reflects the service I personally performed and the decisions made by me, Dr. Mahad Bernard MD Status of Scribe Document: Viewed
[2018-10-01] MEDS ORDERED: Ondansetron INJ* 2 MG/ML VIAL IV ONE (19:26)
[2018-10-01] MEDS ORDERED: NS 0.9% 1000 ML** 1,000 ML IV ONE (19:26)
[2018-10-01] MEDS ORDERED: Propofol* 10 MG/ML 20 ML BTL IV PUSH ONE ×2 (19:28→20:06)
[2018-10-01] MEDS: Propofol* 10 MG/ML 50 ML BTL IV PUSH ONE ×2 (19:55→19:56)
[2018-10-01] MEDS ORDERED: Metoprolol Tartrate IV* 1 MG/ML 5 ML VIAL ONE (19:58)
[2018-10-01] MEDS ORDERED: Metoprolol Tartrate TAB* 25 MG PO ONE (20:22)
[2018-10-01 21:01] VITALS: BP 100/67
== END 2018-10-01 20:59 | disposition home or self-care (01) ==
LOC: ED 16:36
DX: I48.2 Chronic atrial fibrillation (principal)
CPT/HCPCS: 93005; 96361; 96365; 96375; 99285; J2405; J2704; J3490

== ENCOUNTER 2018-11-30 17:47 | Emergency (ER) | payer BC ==
[2018-11-30] MEDS ORDERED: Diltiazem IV push/loading dose 5 MG/ML 5 ML vial (25 mg) IV SLOW PU ONE (18:05)
[2018-11-30] MEDS ORDERED: Diltiazem IV push/loading dose 5 MG/ML 5 ML vial (25 mg) ONE (18:06)
--- NOTE | 2018-11-30 18:10 | ED ---
Palpitations / Dysrhythmia - HPI Summary HPI Summary: 23 y/o male history of atrial fibrillation on metoprolol presents with palpitations and tachycardia. Pt states that his heart rate began racing at around 1600 tonight. He stated that he ran out of metoprolol last week. He denies any CP, SOB, fevers, chills, N/V, headaches, and diaphoresis. He stated that he was exercising today when the episode began. He denies any alleviating factors. Pt repeatedly states he doesnt want atropine. He denies any chest pain but does report chest tightness. - History of Current Complaint Time Seen by Provider: 11/30/18 17:55 Hx Obtained From: Patient Onset/Duration: Sudden Onset - 1600, Still Present Timing: Constant Severity Initially: Moderate Severity Currently: Moderate Character: Fast Aggravating: Exertion Alleviating: Nothing Associated Signs & Symptoms: Negative - CP, SOB, fevers, chills, N/V, headaches , and diaphoresis. - Allergy/Home Medications Allergies/Adverse Reactions: Allergies Allergy/AdvReac Type Severity Reaction Status Date / Time Penicillins Allergy Hives Verified 10/01/18 17:29 PMH/Surg Hx/FS Hx/Imm Hx Previously Healthy: Yes Endocrine/Hematology History: Denies: Hx Diabetes, Hx Thyroid Disease Cardiovascular History: Denies: Hx Hypertension Respiratory History: Reports: Hx Asthma Denies: Hx Chronic Obstructive Pulmonary Disease (COPD) GI History: Denies: Hx Ulcer Sensory History: Denies: Hx Contacts or Glasses Opthamlomology History: Denies: Hx Contacts or Glasses - Surgical History Surgery Procedure, Year, and Place: None reported Infectious Disease History: No Infectious Disease History: Denies: Hx Clostridium Difficile, Hx Hepatitis, Hx Human Immunodeficiency Virus (HIV), Hx of Known/Suspected MRSA, Hx Shingles, Hx Tuberculosis, Hx Known/ Suspected VRE, Hx Known/Suspected VRSA, History Other Infectious Disease, Traveled Outside the [place] in Last 30 Days - Family History Known Family History: Positive: Cardiac Disease - Father has had multiple MIs and stents - Social History Occupation: Employed Full-time Lives: Alone Alcohol Use: Occasionally Hx Substance Use: No Substance Use Type: Reports: None Hx Tobacco Use: No Smoking Status (MU): Never Smoked Tobacco Review of Systems Negative: Fever, Chills, Skin Diaphoresis Positive: Palpitations - fast. Negative: Chest Pain Negative: Shortness Of Breath Negative: Vomiting, Nausea Negative: Headache All Other Systems Reviewed And Are Negative: Yes Physical Exam - Summary Physical Exam Summary: Constitutional: Well-developed, Well-nourished, Alert. (-) Distressed Skin: Warm, Dry HENT: Normocephalic; Atraumatic Eyes: Conjunctiva normal Neck: Musculoskeletal ROM normal neck. (-) JVD, (-) Stridor, (-) Nuchal rigidity Cardio: irregularly irregular, tachycardic, Heart sounds normal; Intact distal pulses; Radial pulses are 2+ and symmetric. (-) Murmur Pulmonary/Chest wall: Effort normal. (-) Respiratory distress, (-) Wheezes, (-) Rales Abd: Soft, (-) tenderness, (-) Distension, (-) Guarding, (-) Rebound Musculoskeletal: (-) Edema Lymph: (-) Cervical adenopathy Neuro: Alert, Oriented x3 Psych: Mood and affect Normal Triage Information Reviewed: Yes Vital Signs On Initial Exam: Initial Vitals Temp Pulse Resp BP Pulse Ox 97.8 F 156 20 153/76 100 11/30/18 17:59 11/30/18 17:59 11/30/18 17:59 11/30/18 17:59 11/30/18 17:59 Vital Signs Reviewed: Yes Diagnostics - Vital Signs Vital Signs Temp Pulse Resp BP Pulse Ox 11/30/18 17:59 97.8 F 156 20 153/76 100 - Laboratory Result Diagrams: 11/30/18 18:36 11/30/18 18:36 Lab Statement: Any lab studies that have been ordered have been reviewed, and results considered in the medical decision making process. - Radiology No standard instances Radiology Interpretation Completed By: ED Physician - CXR - No acute cardiopulmonary abnormalities - EKG 1750 Cardiac Rate: Tachycardia - 158 BPM Summary of EKG Findings: EKG at 1750 reveals A-Fib at a rate of 158 BPM nml axis , nml intervals. No STEMI. No acute changes. Interpreted by Dr. Clinton at 1754 11/30/18. 182 Cardiac Rate: NL - 90 BPM EKG Rhythm: Sinus Rhythm ST Segment: Normal Ectopy: None Summary of EKG Findings: EKG at 1826, after diltizem 20 mg: reveals normal sinus rhythm at a rate of 90 BPM, nml axis, nml intervals. No STEMI. No acute changes. Interpreted by Dr. Clinton at 1831 11/30/18. Re-Evaluation - Re-Evaluation First Eval Re-Evaluation Time: 18:50 Change: Improved Comment: Pt returned to a NSR after administration of Diltizem 20 mgs. Course/Dx - Course Course Of Treatment: 23-year-old male history of atrial fibrillation on metoprolol presents with A. fib with RVR. Heart rate in the 160s on arrival blood pressure in the 130s. Will try diltiazem 20 mg times one and reassess. Suspect secondary to medication noncompliance. EKG with A. fib with RVR. Check electrolytes, and troponin given report chest tightness, will also check a chest x-ray - Diagnoses Provider Diagnoses: Atrial fibrillation with RVR - Physician Notifications Discussed Care Of Patient With: Jonathon Mo Time Discussed With Above Provider: 18:24 Instructed by Provider To: Other - Dr. Mo, warehouse forklift operator, was consulted to discuss medication and current plan of care. The medication decided on is Metropolol 12.5 mg which is his usual medication. He will stay in the ED for further investigation for a short time to monitor his hear rate. - Critical Care Time Critical Care Time: 30-74 min - 30 minutes Discharge - Sign-Out/Discharge Documenting (check all that apply): Sign-Out Patient Signing out patient TO: Jessy Alfaro Patient Received Moderate/Deep Sedation with Procedure: No - Discharge Plan Condition: Stable Prescriptions: Metoprolol Tartrate TAB* [Lopressor TAB*] 12.5 mg PO BID 30 Days #30 tab Patient Education Materials: A-fib (Atrial Fibrillation) (ED) Referrals: [facility] [Outside] - 2 Days Jonathon Mo MD [Medical Doctor] - 2 Days Additional Instructions: You were seen in the emergency department for atrial fibrillation We refilled your metoprolol to your pharmacy. If any studies were not completed at the time of discharge you will be called with the relevant results. Please follow up with your primary care doctor in next 2-3 days and return to emergency department for worsening or concerning symptoms. - Billing Disposition and Condition Condition: STABLE - Attestation Statements Document Initiated by Scribe: Yes Documenting Scribe: Dimas Todd Provider For Whom Scribe is Documenting (Include Credential): Clair Clinton MD Scribe Attestation: I, Dimas Todd, scribed for Clair Clinton MD on 11/30/18 at 1902. Scribe Documentation Reviewed: Yes Provider Attestation: The documentation as recorded by the [email or web address] accurately reflects the service I personally performed and the decisions made by me, Clair Clinton MD Status of Scribe Document: Viewed
[2018-11-30] MEDS ORDERED: Diltiazem TAB* 30 MG PO ONE (18:13)
[2018-11-30] MEDS ORDERED: Metoprolol Tartrate TAB* 25 MG PO ONE ×2 (18:20→19:15)
[2018-11-30 18:51] LABS: ABS Eosinophils 0.1 10^3/ul (0-0.6); ABS Lymphocytes 1.5 10^3/ul (1.0-4.8); ABS Monocytes 0.7 10^3/ul (0-0.8); ABS Neutrophils 5.5 10^3/ul (1.5-7.7); Eosinophil % 0.8 %; Hematocrit 46 % (42-52); Hemoglobin 16.1 g/dL (14.0-18.0); Lymphocyte % 18.9 %; Mean Corpuscular HGB Conc 35 g/dL (31-36); Mean Corpuscular Hemoglobin 30 pg (27-31); Mean Corpuscular Volume 85 fL (80-94); Mean Platelet Volume 9.5 fL (7.4-10.4); Nucleated Red Blood Cells % 0.1; Platelet Count 199 10^3/uL (150-450); Red Cell Distribution Width 13 % (10-15); White Blood Count 7.8 10^3/uL (3.5-10.8)
[2018-11-30 19:00] LABS: Albumin 4.8 g/dL (3.2-5.2); Albumin/Globulin Ratio 1.7 (1-3); BUN/Creatinine Ratio 21.1 (8-20); Calcium 9.8 mg/dL (8.6-10.3); EGFR African American 73.5 (>60); EGFR Non-African American 60.7 (>60); Globulin 2.9 g/dL (2-4); Magnesium 2.2 mg/dL (1.9-2.7); Total Bilirubin 0.5 mg/dL (0.2-1.0); Total Protein 7.7 g/dL (6.4-8.9)
--- NOTE | 2018-11-30 19:31 | ED ---
Progress - Progress Note Progress Note: This patient was signed out from Dr. Clinton to Dr. Alfaro upon shift change at 19:00 11/30/18 pending further monitoring of his heart rate. The patient will be discharged and follow up with his PCP and itinerant teacher assistant. The patient is agreeable with this plan. Re-Evaluation - Re-Evaluation First Eval Re-Evaluation Time: 20:02 Course/Dx - Course Course Of Treatment: This patient was signed out from Dr. Clinton to Dr. Alfaro upon shift change at 19:00 11/30/18 pending further monitoring of his heart rate. The patient will be discharged and follow up with his PCP and itinerant teacher assistant. The patient is agreeable with this plan. He was stongly advised not to miss any doses of his metoprolol and to follow-up with his itinerant teacher assistant, Dr. Mo. - Diagnoses Provider Diagnoses: Atrial fibrillation with RVR - Provider Notifications Time Discussed With Above Provider: 18:24 Instructed by Provider To: Other - Dr. Mo, itinerant teacher assistant, was consulted to discuss medication and current plan of care. The medication decided on is Metropolol 12.5 mg which is his usual medication. He will stay in the ED for further investigation for a short time to monitor his hear rate. - Critical Care Time Critical Care Time: 30-74 min - 30 minutes Discharge - Sign-Out/Discharge Documenting (check all that apply): Patient Departure - DC, Receiving Sign-Out Receiving patient FROM: Clair Clinton Patient Received Moderate/Deep Sedation with Procedure: No - Discharge Plan Condition: Stable Disposition: HOME Prescriptions: Metoprolol Tartrate TAB* [Lopressor TAB*] 12.5 mg PO BID 30 Days #30 tab Patient Education Materials: A-fib (Atrial Fibrillation) (ED) Referrals: [facility] [Outside] - 2 Days Jonathon Mo MD [Medical Doctor] - 2 Days Additional Instructions: You were seen in the emergency department for atrial fibrillation We refilled your metoprolol to your pharmacy. If any studies were not completed at the time of discharge you will be called with the relevant results. Please follow up with your primary care doctor in next 2-3 days and return to emergency department for worsening or concerning symptoms. Also, 1. Take only half of the metoprolol tomorrow morning (12.5mg) 2.Follow-up with Dr. Mo to discuss treatment options. - Billing Disposition and Condition Condition: STABLE Disposition: Home - Attestation Statements Document Initiated by Zoë: Yes Documenting Scribe: Jay Dorman Provider For Whom Zoë is Documenting (Include Credential): Jessy Yanez MD Scribe Attestation: I, Jay Dorman, scribed for Jessy Alfaro MD on 11/30/18 at 2323. Scribe Documentation Reviewed: Yes Provider Attestation: The documentation as recorded by the Jay valencia accurately reflects the service I personally performed and the decisions made by me, Jessy Alfaro MD Status of Scribe Document: Viewed
[2018-11-30 19:43] LABS: Urine Benzodiazepine Screen None Detected (None Detect); Urine Opiates Screen None Detected (None Detect)
[2018-11-30 20:58] VITALS: BP 141/82
== END 2018-11-30 20:59 | disposition home or self-care (01) ==
LOC: ED 17:47
DX: I48.2 Chronic atrial fibrillation (principal); J45.909 Unspecified asthma, uncomplicated; Z79.899 Other long term (current) drug therapy; Z88.0 Allergy status to penicillin
CPT/HCPCS: 36415; 71046; 80053; 80307; 83735; 84484; 85025; 93005; 96374; 99284

== ENCOUNTER 2019-07-06 15:59 | Emergency (ER) | payer BC ==
[2019-07-06 17:08] VITALS: BP 119/51
--- NOTE | 2019-07-06 21:06 | UC ---
Skin Complaint HPI - HPI Summary HPI Summary: ABOUT 10 DAYS OF PAINFUL, RED BUMP RIGHT UPPER EYELID. HAS BEEN USING WARM COMPRESSES WITH NO IMPROVEMENT. NO FEVER. NO PAIN WITH EYE MOVEMENTS. NO FOREIGN BODY SENSATION OR VISUAL DISTURBANCES. NO DRAINAGE FROM THE EYE. NO HEADACHE OR NAUSEA. - History of Current Complaint Chief Complaint: UCEye Time Seen by Provider: 07/06/19 18:47 Stated Complaint: STYE Hx Obtained From: Patient Onset/Duration: Gradual Onset, Lasting Days, Still Present Timing: Constant Onset Severity: Moderate Current Severity: Moderate Pain Intensity: 6 Pain Scale Used: 0-10 Numeric Character: Pain, Redness, Raised Aggravating Factor(s): Touch Alleviating Factor(s): Nothing Associated Signs & Symptoms: Positive: Tenderness - Allergy/Home Medications Allergies/Adverse Reactions: Allergies Allergy/AdvReac Type Severity Reaction Status Date / Time Penicillins Allergy Severe anaphylaxis Verified 07/06/19 17:09 Home Medications: Home Medications Aspirin TAB* [Aspirin 325 MG TAB*] 2 tab PO DAILY 07/06/19 [History Confirmed ] Erythromycin OPHTH.OINT* [Ilotycin OPHTH.OINT*] 1 applic RIGHT EYE QID #1 tube 07/06/19 [Rx] Sulfamethox/Trimethoprim DS* [Bactrim DS 800/160 TAB*] 1 tab PO BID #20 tab 03/16 [Rx] PMH/Surg Hx/FS Hx/Imm Hx Respiratory History: Asthma - Surgical History Surgical History: None Surgery Procedure, Year, and Place: None reported - Family History Known Family History: Positive: Cardiac Disease - Father has had multiple MIs and stents - Social History Alcohol Use: Occasionally Substance Use Type: None Smoking Status (MU): Never Smoked Tobacco Have You Smoked in the Last Year: No - Immunization History Most Recent Influenza Vaccination: no Review of Systems All Other Systems Reviewed And Are Negative: Yes Constitutional: Positive: Negative Skin: Positive: Other - ABSCESS RIGHT UPPER EYELID Eyes: Positive: Negative Respiratory: Positive: Negative Cardiovascular: Positive: Negative Gastrointestinal: Positive: Negative Physical Exam Triage Information Reviewed: Yes Appearance: Well-Appearing, No Pain Distress, Well-Nourished Vital Signs: Initial Vital Signs Temp 98.9 F 07/06/19 17:02 Pulse 69 07/06/19 17:02 Resp 16 07/06/19 17:02 BP 119/51 07/06/19 17:02 Pulse Ox 100 07/06/19 17:02 Vital Signs Reviewed: Yes Eyes: Positive: Conjunctiva Clear, Other: - RIGHT UPPER EYELID WITH ABSCESS. Negative: Discharge ENT: Positive: Hearing grossly normal Neck: Positive: Supple Respiratory: Positive: No respiratory distress, No accessory muscle use Cardiovascular: Positive: Pulses Normal Abdomen Description: Positive: Soft Musculoskeletal: Positive: No Edema Neurological: Positive: Alert Psychological: Positive: Age Appropriate Behavior Skin: Positive: Other - RIGHT UPPER EYELID ABSCESS - TENDER Procedures - Incision and Drainage Right Upper Site: RIGHT UPPER EYELID Instrument(s): Needle - 18 GAUGE Course/Dx - Course Course Of Treatment: PATIENT WITH CLEAR ABSCESS OF HIS RIGHT UPPER EYELID. NO INVOLVEMENT OF THE GLOBE. TIME OUT COMPLETE. 18-GAUGE NEEDLE USED TO NUBIA THE ABSCESS. PURULENT DRAINAGE EXPRESSED. SPECIMEN COLLECTED AND SENT FOR CULTURE. TOPICAL ERYTHROMYCIN OINTMENT AND ORAL BACTRIM TO COVER FOR INFECTION. ADVISED TO CONTINUE HOT COMPRESSES. FOLLOW-UP EYE DOCTOR IN A COUPLE OF WEEKS. SOONER IF NOT IMPROVING OVER THE NEXT FEW DAYS. - Diagnoses Provider Diagnosis: Abscess of right upper eyelid Discharge ED - Sign-Out/Discharge Documenting (check all that apply): Patient Departure All imaging exams completed and their final reports reviewed: No Studies - Discharge Plan Condition: Stable Disposition: HOME Prescriptions: Erythromycin OPHTH.OINT* [Ilotycin OPHTH.OINT*] 1 applic RIGHT EYE QID #1 tube Sulfamethox/Trimethoprim DS* [Bactrim DS 800/160 TAB*] 1 tab PO BID #20 tab Patient Education Materials: Abscess (ED) Referrals: [facility] [Outside] - If Needed Mikey Lang MD [Medical Doctor] - 2 Weeks Additional Instructions: YOU HAVE AN ABSCESS ON YOUR RIGHT UPPER EYELID. IT WAS LANCED TODAY. CONTINUE WARM COMPRESSES SEVERAL TIMES DAILY. USE THE TOPICAL ERYTHROMYCIN OINTMENT 4 TIMES DAILY FOR A WEEK AND TAKE THE ORAL ANTIBIOTICS TWICE DAILY FOR THE FULL 10 DAYS. FOLLOW-UP WITH THE EYE DOCTOR IN A COUPLE OF WEEKS FOR REEVALUATION. SOONER IF YOU'RE NOT RESPONDING TO THE TREATMENT. CALL THE NUMBER BELOW FOR ASSISTANCE IN ESTABLISHING WITH A PCP An additional resource available to assist in finding the appropriate physician for your health care needs is the [facility] ([facility]). You may contact them by calling [phone]. - Billing Disposition and Condition Condition: STABLE Disposition: Home
== END 2019-07-06 21:00 | disposition home or self-care (01) ==
LOC: UCEAST 15:59
DX: H00.031 Abscess of right upper eyelid (principal); Z79.82 Long term (current) use of aspirin; Z88.0 Allergy status to penicillin
CPT/HCPCS: 10060; 67700; 87070; 87077; 87205; 87640; 87641; 99212; G0463

== ENCOUNTER 2019-08-16 18:53 | Emergency (ER) | payer BC ==
[2019-08-16] MEDS ORDERED: NS 0.9% 1000 ML** 1,000 ML IV ONE (20:54)
--- NOTE | 2019-08-16 21:09 | ED ---
Palpitations / Dysrhythmia - HPI Summary HPI Summary: 24-year-old male presents with palpitations today. States that it started after he was working out. He states he has a history of this but has not had an episode last this long since he had an ablation in February. He has not been following up with his plumbing service technician since the ablation and is not sure if he should be on metoprolol. He states that his symptoms have improved. He denies any chest pain shortness of breath. No recent travel. He does have family history of blood clots. he is not a smoker and no drug use. - History of Current Complaint Chief Complaint: EDDysrhythmPalp Time Seen by Provider: 08/16/19 19:05 - Allergy/Home Medications Allergies/Adverse Reactions: Allergies Allergy/AdvReac Type Severity Reaction Status Date / Time Penicillins Allergy Severe anaphylaxis Verified 07/06/19 17:09 Home Medications: Home Medications Aspirin TAB* [Aspirin 325 MG TAB*] 650 mg PO BID PRN 07/06/19 [History Confirmed 08/16/19] PMH/Surg Hx/FS Hx/Imm Hx Endocrine/Hematology History: Denies: Hx Diabetes, Hx Thyroid Disease Cardiovascular History: Denies: Hx Hypertension Respiratory History: Reports: Hx Asthma Denies: Hx Chronic Obstructive Pulmonary Disease (COPD) GI History: Denies: Hx Ulcer Sensory History: Denies: Hx Contacts or Glasses Opthamlomology History: Denies: Hx Contacts or Glasses - Surgical History Surgery Procedure, Year, and Place: None reported Infectious Disease History: No Infectious Disease History: Denies: Hx Clostridium Difficile, Hx Hepatitis, Hx Human Immunodeficiency Virus (HIV), Hx of Known/Suspected MRSA, Hx Shingles, Hx Tuberculosis, Hx Known/ Suspected VRE, Hx Known/Suspected VRSA, History Other Infectious Disease, Traveled Outside the [place] in Last 30 Days - Family History Known Family History: Positive: Cardiac Disease - Father has had multiple MIs and stents - Social History Alcohol Use: Occasionally Hx Substance Use: No Substance Use Type: Reports: None Hx Tobacco Use: No Smoking Status (MU): Never Smoked Tobacco Have You Smoked in the Last Year: No Review of Systems Negative: Fever Positive: Palpitations. Negative: Chest Pain Negative: Shortness Of Breath All Other Systems Reviewed And Are Negative: Yes Physical Exam Triage Information Reviewed: Yes Vital Signs On Initial Exam: Initial Vitals Temp Pulse Resp BP Pulse Ox 99.0 F 112 18 118/76 96 08/16/19 19:00 08/16/19 19:00 08/16/19 19:00 08/16/19 19:00 08/16/19 19:00 Vital Signs Reviewed: Yes Appearance: Positive: Well-Appearing Skin: Positive: Warm, Dry Head/Face: Positive: Normal Head/Face Inspection Eyes: Positive: Normal, Conjunctiva Clear ENT: Positive: Pharynx normal Respiratory/Lung Sounds: Positive: Clear to Auscultation, Breath Sounds Present Cardiovascular: Positive: Normal, RRR Abdomen Description: Positive: Nontender, Soft Bowel Sounds: Positive: Present Musculoskeletal: Positive: Normal Neurological: Positive: Normal Psychiatric: Positive: Normal Procedures - Sedation Patient Received Moderate/Deep Sedation with Procedure: No Diagnostics - Vital Signs Vital Signs Temp Pulse Resp BP Pulse Ox 08/16/19 19:00 99.0 F 112 18 118/76 96 - Laboratory Result Diagrams: 08/16/19 21:00 08/16/19 21:00 Lab Statement: Any lab studies that have been ordered have been reviewed, and results considered in the medical decision making process. - EKG No standard instances Cardiac Rate: Tachycardia EKG Rhythm: Sinus Tachycardia EKG Comparison: No Significant Change Summary of EKG Findings: sinus trachycardia Re-Evaluation - Re-Evaluation First Eval Re-Evaluation Time: 22:28 Comment: heart rate is 80. is currently in a sinus rhythm. Course/Dx - Course Course Of Treatment: 24-year-old male presents with palpitations today. States that it started after he was working out. He states he has a history of this but has not had an episode last this long since he had an ablation in February. He has not been following up with his plumbing service technician since the ablation and is not sure if he should be on metoprolol. He states that his symptoms have improved. He denies any chest pain shortness of breath. No recent travel. He does have family history of blood clots. On exam lungs CTA. Heart regular rhythm. ekg sinus tachycardia. lab work wnl. symptoms resolve while in ED and is in sinus rhythm. will have follow up with cardiology. patient understand and agrees with plan. - Diagnoses Differential Diagnosis/HQI/PQRI: Positive: Hypokalemia, Panic Disorder, Paroxymal SVT Provider Diagnoses: Palpitations - Critical Care Time Critical Care Statement: Critical care time is provided exclusive of any time spent performing procedures. Discharge ED - Sign-Out/Discharge Documenting (check all that apply): Patient Departure - Discharge Plan Condition: Good Disposition: HOME Patient Education Materials: Heart Palpitations (ED) Referrals: James Mcduffie MD [Medical Doctor] - Additional Instructions: drink plenty of fluids avoid intense physical activity Follow up with cardiology Return to ED if develop any new or worsening symptoms - Billing Disposition and Condition Condition: GOOD Disposition: Home
[2019-08-16 21:30] LABS: ABS Basophils 0.1 10^3/ul (0-0.2); ABS Lymphocytes 1.4 10^3/ul (1.0-4.8); ABS Monocytes 0.6 10^3/ul (0-0.8); ABS Neutrophils 5.7 10^3/ul (1.5-7.7); Eosinophil % 0.5 %; Hematocrit 46 % (42-52); Hemoglobin 16.3 g/dL (14.0-18.0); Lymphocyte % 17.9 %; Mean Corpuscular HGB Conc 36 g/dL (31-36); Mean Corpuscular Hemoglobin 30 pg (27-31); Mean Corpuscular Volume 85 fL (80-94); Mean Platelet Volume 10.2 fL (7.4-10.4); Nucleated Red Blood Cells % 0.3; Platelet Count 232 10^3/uL (150-450); Red Cell Distribution Width 13 % (10-15); White Blood Count 7.7 10^3/uL (3.5-10.8)
[2019-08-16 21:49] LABS: Albumin/Globulin Ratio 1.7 (1-3); BUN/Creatinine Ratio 17.8 (8-20); Calcium 9.9 mg/dL (8.6-10.3); EGFR African American 77.3 (>60); EGFR Non-African American 63.9 (>60); Magnesium 2.4 mg/dL (1.9-2.7); Potassium 3.8 mmol/L (3.5-5.0); Total Bilirubin 0.6 mg/dL (0.2-1.0)
[2019-08-16 21:50] LABS: Troponin I 0.01 ng/mL (<0.03)
[2019-08-16 22:03] LABS: TSH (Thyroid Stimulating Horm) 2.29 mcIU/mL (0.34-5.60)
[2019-08-16 22:27] VITALS: BP 121/84
== END 2019-08-16 22:26 | disposition home or self-care (01) ==
LOC: ED 18:53
DX: R00.2 Palpitations (principal); Z79.82 Long term (current) use of aspirin; Z86.79 Personal history of other diseases of the circulatory system
CPT/HCPCS: 36415; 80053; 83605; 83735; 84443; 84484; 85025; 93005; 99283